=== PATIENT | male | born 1965 | race American Indian/Alaskan Native ===

== ENCOUNTER 2020-06-11 07:42 | Day surgery (SDC) | payer BC ==
[2020-06-11 08:53] LABS: Basophils # (Auto) 0.1 K/mm3 (0.0-0.1); Basophils % (Auto) 0.7 % (0.0-1.8); Eosinophils # (Auto) 0.1 K/mm3 (0.0-0.4); Eosinophils % (Auto) 1.2 % (0.0-4.3); Hematocrit 40.7 % (35.5-45.6); Hemoglobin 13.8 gm/dl (11.8-15.2); Lymphocytes # (Auto) 2.3 K/mm3 (1.2-5.4); Lymphocytes % (Auto) 24.6 % (13.4-35.0); Mean Corpuscular HGB Conc 34 % (32-34); Mean Corpuscular Volume 91 fl (84-94); Monocytes # (Auto) 0.7 K/mm3 (0.0-0.8); Monocytes % (Auto) 7.6 % (0.0-7.3); Platelet Count 362 K/mm3 (140-440); Red Blood Count 4.47 M/mm3 (3.65-5.03)
[2020-06-11] MEDS ORDERED: SODIUM CHLORIDE 0.9% 500 ML 500 ML IV SCH (09:00)
[2020-06-11 09:02] LABS: INR 0.95 (0.87-1.13)
[2020-06-11] MEDS ORDERED: HEPARIN 10,000 UNITS/10 ML VIAL ONE ×2 (09:33→10:15)
[2020-06-11] MEDS ORDERED: HEPARIN/NS 5000 UNIT/500ML 1,000 ML IR ONE (09:33)
[2020-06-11] MEDS ORDERED: fentaNYL 100 MCG/2 ML INJ ONE (09:34)
[2020-06-11] MEDS ORDERED: LIDOCAINE (2%) 20 MG/1 ML VIAL 20 ML MDV INFILTRATI ONE (09:34)
[2020-06-11] MEDS ORDERED: MIDAZOLAM 2 MG/2 ML INJ ONE (09:34)
[2020-06-11] MEDS ORDERED: VERAPAMIL 5 MG/2 ML INJ ONE (09:34)
[2020-06-11] MEDS ORDERED: NITROGLYCERIN SYRINGE 3 ML ONE (09:35)
[2020-06-11] MEDS ORDERED: SODIUM CHLORIDE 0.9% 0 ML ONE (10:17)
[2020-06-11] MEDS ORDERED: ADENOSINE 60 MG/20 ML VIAL ONE (10:17)
[2020-06-11 10:23] LABS: BUN/Creatinine Ratio 15; Blood Urea Nitrogen 15 mg/dL (9-20); Calcium 9.1 mg/dL (8.4-10.2); Hemolysis Index 6
[2020-06-11] MEDS ORDERED: POTASSIUM CHLORIDE ER 20 MEQ TAB PO SCH (11:00)
--- NOTE | 2020-06-11 11:12 | Short Stay Summary ---
Short Stay Documentation Date of service: 06/11/20 - History H&P: obtained from office - Allergies and Medications Current Medications: Allergies No Known Allergies Allergy (Unverified 06/11/20 08:27) Home Medications Medication Instructions Recorded Confirmed Last Taken Type Aspirin [Adult Aspirin] 81 mg PO QDAY 06/11/20 06/11/20 06/11/20 06:45 History ISOSORBIDE MONOnitrate [Imdur ER] 30 mg PO DAILY 06/11/20 06/11/20 06/11/20 06:45 History Ramipril 10 mg PO QDAY 06/11/20 06/11/20 06/11/20 06:45 History Simvastatin 20 mg PO HS 06/11/20 06/11/20 06/10/20 History amLODIPine [Norvasc] 10 mg PO DAILY 06/11/20 06/11/20 06/11/20 06:45 History metFORMIN [Glucophage] 500 mg PO BID 06/11/20 06/11/20 06/11/20 06:45 History Active Medications Sodium Chloride (Nacl 0.9% 500 Ml) 500 mls @ 50 mls/hr IV DIRECT VIN Stop: 06/11/20 18:59 Last Admin: 06/11/20 08:56 Dose: 50 mls/hr Documented by: Potassium Chloride (Potassium Chloride Er 20 Meq Tab) 40 meq PO ONCE VIN Stop: 06/11/20 14:00 - Brief post op/procedure progress note Date of procedure: 06/11/20 Pre-op diagnosis: Abnormal MPI Stress Test Post-op diagnosis: other (Normal Coronary Arteries) Anesthesia: local Estimated blood loss: none Condition: stable - Disposition Condition at discharge: Good Disposition: DC-01 TO HOME OR SELFCARE - Discharge Diagnoses (1) Normal coronary arteries Status: Chronic Short Stay Discharge Plan Activity: advance as tolerated Diet: low fat, low cholesterol, low salt Wound: open to air, keep clean and dry, per your surgeon's advice Additional Instructions: Hold Metformin for 48 hours. Follow up with: NASIM MAR MD [Primary Care Provider] - 7 Days (F/u with Dr Mar in our [place] office on 07/07/20 at 1PM.)
--- NOTE | 2020-06-11 12:05 | Cardiac Catherization Report ---
REFERRING PHYSICIAN: Dr. Cintron. INDICATION FOR PROCEDURE: The patient is a pleasant 55-year-old -[place] Citizen gentleman with multiple risk factors, found to have an abnormal stress test preoperatively here for left heart catheterization per Dr. Cintron. Risks, benefits, alternatives discussed at length prior to obtaining informed consent. PROCEDURE IN DETAIL: The patient was brought to the catheterization lab in a postabsorptive state, prepped and draped in sterile fashion. Jed's test in right hand was normal. A 2 mL of 2% lidocaine used to anesthetize the right wrist. A standard 6-Yoruba hydrophilic sheath used to cannulate the right radial artery via modified Seldinger technique. All exchanges performed to exchange a J-tip guidewire. JL3.5 catheter was used to engage the left main. No dampening or ventricularization. Cineangiography performed in all projections. JR4 catheter was used to cross the aortic valve under fluoroscopic guidance. Left ventriculography performed in 30 HARDY and 30 SETSWANA projections via hand injections, catheter flushed. Manual pullback performed with continuous pressure monitoring. Catheter used to engage the right coronary. No dampening or ventricularization. Cineangiography performed in all projections. JR4 catheter removed from the body, sheath removed. Manual pressure used to achieve hemostasis. No immediate complications identified. I directly supervised the administration of moderate sedation from 10:20 a.m. to 10:50 a.m. with fentanyl and Versed. There were no immediate complications identified. DATA: Aortic pressure is 130/80, LV pressure is 130, LVP of 22 mmHg. Left ventriculography reveals normal systolic performance with estimated ejection fraction of 65-70%. No evidence of aortic stenosis. CORONARY ANATOMY: Right dominant system. Left main is short, bifurcates left anterior descending and left circumflex. No disease in left main, left circumflex is a large vessel, courses AV groove. No significant disease. LAD is a moderate to large vessel, courses anterior intraventricular groove, wraps around the apex, 20-25% stenosis noted in the mid LAD, but no obstructive disease noted in the left system. YULI 3 flow throughout the coronary tree, right coronary is a large vessel, courses AV groove, distally bifurcates into posterior and posterolateral branches. No discrete stenoses noted. YULI 3 flow throughout. CONCLUSIONS: 1. Mild nonobstructive coronary artery disease in this right dominant system with a 20-25% mid LAD stenosis, YULI 3 flow throughout. 2. Normal left ventricular systolic performance, estimated ejection fraction 65-70%. 3. No evidence of aortic stenosis. 4. Mild systemic arterial hypertension. 5. Mildly elevated LVEDP. The patient is clinically stable, chest pain free. Risk factor modification. Primary and secondary prevention measures were discussed at length with the patient and his family. Discussed with his , Herson via telephone at [phone]. Standard radial care. Results of procedure explained to the patient. Follow up with Dr. Cintron in the office. Continue statin, INDERJIT, Imdur and hydrochlorothiazide. Hold metformin for 2 days. Follow up with Dr. Cintron in the office. JOB# [id number] SBM/NTS
[2020-06-11 13:31] VITALS: BP 160/82
--- NOTE | 2020-06-13 10:36 | Electrocardiograph Report ---
[facility] Test Date: 2020-06-11 Test Time: 09:03:30 Pat Name: CARLOS ALMARAZ Department: Room: Gender: M Drywall Sander: MARIAMA : 1965 Requested By: VIOLETTE CULVER Order Number: [id number] Reading MD: Azeb Darling Measurements Intervals [place] Rate: 81 P: 53 CO: 154 QRS: 22 QRSD: 84 T: 136 QT: 395 QTc: 459 Interpretive Statements Sinus rhythm Probable left atrial enlargement LVH WITH SECONDARY REPOLARIZATION ABNORMALITY No previous ECG available for comparison Electronically Signed On 06-13-2020 10:36:28 EDT by Azeb Darling
== END 2020-06-11 14:35 | disposition home or self-care (01) ==
LOC: CATHLABREC 07:42
PROVIDERS: ATTEND Internal Medicine
DX: R94.39 Abnormal result of other cardiovascular function study (principal); I25.10 Atherosclerotic heart disease of native coronary artery without angina pectoris; E78.00 Pure hypercholesterolemia, unspecified; I10 Essential (primary) hypertension; Z79.82 Long term (current) use of aspirin; Z79.84 Long term (current) use of oral hypoglycemic drugs; Z98.890 Other specified postprocedural states
CPT/HCPCS: 36415; 80048; 85025; 85610; 85730; 93005; 93458; 99156; 99157; C1894; J1644; J2250; J3010; J7040; J0153; Q9967